=== PATIENT | male | born 1970 | race Asian ===

== ENCOUNTER 2017-06-21 11:03 | Emergency (ER) | payer BC ==
[~2017-06-21] VITALS: Ht 167.6 cm; Wt 68.9 kg
[2017-06-21 12:35] VITALS: BP 166/91
[2017-06-21] MEDS ORDERED: KETOROLAC TROMETH 60MG/2ML VIAL IM ONE (13:30)
== END 2017-06-21 14:27 | disposition home or self-care (01) ==
LOC: ER 11:03
DX: M25.552 Pain in left hip (principal); I10 Essential (primary) hypertension; M10.9 Gout, unspecified; Z88.8 Allergy status to other drugs, medicaments and biological substances; V43.62XA Car passenger injured in collision with other type car in traffic accident, initial encounter; Y93.89 Activity, other specified; Y92.89 Other specified places as the place of occurrence of the external cause; Y99.8 Other external cause status
CPT/HCPCS: 73502

== ENCOUNTER 2019-11-28 15:30 | Emergency (ER) | payer BC, OTHER ==
[~2019-11-28] VITALS: Ht 167.6 cm; Wt 81.6 kg
[2019-11-28] MEDS ORDERED: SODIUM CHLORIDE 0.9% 1,000 ML IV ONE ×2 (16:00)
[2019-11-28 16:19] LABS: Urine Bacteria MANY /hpf (None Seen); Urine Blood TRACE /uL (Negative); Urine Hyaline Cast FEW /lpf (0 - 2); Urine Specific Gravity 1.011 (1.001-1.035); Urine WBC 158 /hpf (0 - 3); Urine WBC Clumps PRESENT /hpf (None Seen)
[2019-11-28] MEDS ORDERED: cefTRIAXone W LIDOCAINE 1 GM IM IM ONE (17:30)
[2019-11-28] MEDS ORDERED: LIDOCAINE 2% (LOCAL ANESTH.) PF 5ml SDV ONE (18:04)
[2019-11-28] MEDS ORDERED: cefTRIAXone SOD 1,000 MG VL ONE (18:04)
[2019-11-28 18:14] VITALS: BP 126/78
== END 2019-11-28 18:16 | disposition home or self-care (01) ==
LOC: ER 15:30
DX: N50.811 Right testicular pain (principal); N39.0 Urinary tract infection, site not specified; N45.2 Orchitis; I10 Essential (primary) hypertension
CPT/HCPCS: 71045; 74176; 76870; 81001; 96372; 99285; J0696; J2001

== ENCOUNTER 2024-02-22 15:55 | Inpatient (IN) | payer OTHER ==
[~2024-02-22] VITALS: Ht 167.6 cm; Wt 75.0 kg
--- NOTE | 2024-02-22 17:01 | ED.PDOC ---
SOB-HPI HPI Comments HPI: Poor Historian. 53-year-old male presents to emergency department for evaluation of two week history of exertional shortness of breath better with rest. Patient denies any other associated symptoms. Patient states compliance with his medications and he took his morning medications. He was found to be hypertensive here in the ED. Past Medcial History: Hypertension and gout Past Surgical History: Denies any REVIEW OF SYSTEMS: CONSTITUTIONAL: Denies acute: fever, diaphoresis, chills, generalized weakness. HEAD: Denies acute: headache, photophobia Eyes: Denies acute: Double vision, vision loss, eye pain, eye discharge. EARS: Denies acute: tinnitus, hearing loss, ear discharge, ear pain, THROAT: Denies acute: sore throat, swelling, difficulty swallowing , pain with swallowing, change in voice. NECK: Denies acute: neck pain, neck swelling, stiff neck. HEART: Denies acute : chest pain, palpitations, LUNGS: Denies acute: wheezing, cough, hemoptysis ABDOMEN: Denies acute: abdominal pain, Nausea, Vomiting, diarrhea, melena , hematemesis, hematochezia SKIN: Denies acute: rash, redness, lesions, itchiness. EXTREMITIES: Denies acute: calf pain, numbness, tingling, weakness, denies pain in extremity. Denies acute: Low back pain. Neuro: Denies acute: focal neurological deficit, motor or sensory focal neurological deficit, tremors, seizure like activity, confusion, dizziness, change in mental status, loss of bowel or bladder function, cauda equina like symptoms. : Denies acute: dysuria, hematuria, flank pain, increase in urinary frequency. PSYCH: Denies acute: hallucination, suicidal ideation, homicidal ideation. PHYSICAL EXAM: General: no acute distress, awake and alert. Head: normocephalic, atraumatic. Neck: supple, trachea is midline, no swelling. Throat: Normal phonation. Eyes:, no erythema, no purulent discharge, no proptosis, no icterus. Heart: regular rate, regular rhythm, no significant murmur appreciated. Lungs: no apparent respiratory distress, Able to speak in full sentences. No wheezing, no rhonchi, no crackles. No stridors Clear to auscultation bilaterally. Abdomen: non tender to palpation, non distended, soft, no guarding, no rebound, + bowel sounds. Neuro: Awake, Alert, oriented to name, self, situation, follows commands GCS=15. Speech is normal. Skin: no petechia, no purpura, no cyanosis, non-pale, not jaundice. Lower extremities: --no - Pitting edema no deformity, no focal swelling, no calf TTP. Makes eye contact. moves all four extremities. Face: no apparent facial droop. Ambulating in the ED independently. ED course At this time 2:43 a.m., Dr. Scott called back and give me an authorization [id number] stating that they have no bed availability and they would like us to admit the patient here. Chief Complaint: Shortness of Breath Time Seen by MD: 15:56 Primary Care Provider: JEREMÍAS Easton notes: Nurses Notes, Medications, Allergies Information Source: Patient Mode of Arrival: Ambulatory Past Medical History PAST MEDICAL HISTORY: Gout, HTN Surgical History: Denies all surgeries Social History Smoker: Non-Smoker Alcohol: Denies ETOH Use Drugs: Denies Drug Use X-Ray, Labs, Meds, VS Vital Signs Date Time Temp Pulse Resp B/P (MAP) Pulse Ox O2 Delivery O2 Flow Rate FiO2 02/23/24 00:11 98.1 109 15 144/79 (100) 99 98.1 02/23/24 00:09 20 98 Room Air* 0 21 02/22/24 23:32 195/91 02/22/24 23:11 98.1 96 16 195/91 (125) 99 98.1 02/22/24 16:46 Room Air 0 02/22/24 16:41 98.1 105 17 188/102 (130) 100 Lab Test 02/23/24 00:14 02/22/24 22:44 02/22/24 22:15 02/22/24 21:24 Range/Units Troponin I High Sensitivity 15 14 14 </=54 ng/L Sodium Level 139 141 136-145 mmol/L Potassium Level 3.6 3.4 L 3.5-5.1 mmol/L Chloride Level 107 106 98-107 mmol/L Carbon Dioxide Level 16 L 17 L 20-31 mmol/L Anion Gap 16 H 18 H 5-15 Blood Urea Nitrogen 108 *H 105 *H 9-23 mg/dL Creatinine 10.87 *H 11.05 *H 0.700-1.30 mg/dL Glomerular Filtration Rate Calc 5 5 >90 mL/min BUN/Creatinine Ratio 9.9 L 9.5 L 10.0-20.0 Serum Glucose 102 98 74-106 mg/dL Calcium Level 8.0 L 8.1 L 8.7-10.4 mg/dL Total Bilirubin 0.4 0.4 0.2-1.0 mg/dL Aspartate Amino Transferase (AST) 9 L 10 L 13-40 U/L Alanine Aminotransferase (ALT) 24 19 7-40 U/L Alkaline Phosphatase 132 H 130 H 46-116 U/L Total Protein 8.3 H 8.4 H 5.7-8.2 g/dL Albumin 4.8 4.7 3.2-4.8 g/dL White Blood Count 9.7 4.4-10.8 10^3/uL Red Blood Count 2.92 L 4.5-5.90 10^6/uL Hemoglobin 8.6 L 13.5-17.5 g/dL Hematocrit 25.8 L 41.0-53.0 % Mean Corpuscular Volume 88.3 80.0-100.0 fL Mean Corpuscular Hemoglobin 29.5 28.0-32.0 pg Mean Corpuscular Hemoglobin Concent 33.5 32.0-36.0 g/dL Red Cell Distribution Width 16.4 H 11.8-14.3 % Platelet Count 185 140-450 10^3/uL Mean Platelet Volume 7.1 6.9-10.8 fL Neutrophils (%) (Auto) 67.1 37.0-80.0 % Lymphocytes (%) (Auto) 17.8 10.0-50.0 % Monocytes (%) (Auto) 6.0 0.0-12.0 % Eosinophils (%) (Auto) 8.3 H 0.0-7.0 % Basophils (%) (Auto) 0.8 0.0-2.0 % Neutrophils # (Auto) 6.5 1.6-8.6 10 ^3/uL Lymphocytes # (Auto) 1.7 0.4-5.4 10 ^3/uL Monocytes # (Auto) 0.6 0-1.3 10 ^3/uL Eosinophils # (Auto) 0.8 0-0.8 10 ^3/uL Basophils # (Auto) 0.1 0-0.2 10 ^3/uL Nucleated Red Blood Cells 0.1 % B-Type Natriuretic Peptide 8.90 0-100 pg/mL Test 02/22/24 17:04 Range/Units Blood Gas Specimen Type Arterial Blood Gas Sample Site Right radial Blood Gas Patient Temperature 37.0 Arterial Blood Date Drawn [id number] Arterial Blood pH 7.341 L 7.350-7.450 Arterial Blood Partial Pressure CO2 30.1 L 35.0-48.0 mmHg Arterial Blood Partial Pressure O2 99.7 83.0-108.0 mmHg Arterial Blood HCO3 15.9 L 21.0-28.0 mmol/L Arterial Blood Oxygen Saturation 97.2 94.0-98.0 % Arterial Blood Base Excess -8.8 L -2.0-3.0 mmol/L Arterial Blood Oxyhemoglobin 96.4 94.0-98.0 % Arterial Blood Carboxyhemoglobin 0.1 L 0.5-1.5 % Arterial Blood Methemoglobin 0.7 0.0-1.5 % [place] Test Yes Blood Gas Total Hemoglobin 8.80 L 13.5-17.5 g/dL Blood Gas Modality Room air FiO2 % 21.0 Current Medications Medications (Trade) Dose Ordered Sig/Gildardo Route Start Time Stop Time Status Last Admin Hydralazine HCl (Apresoline Injection) 5 mg ONCE ONCE IV 02/22/24 23:15 02/22/24 23:17 DC 02/22/24 23:32 [place] [id number] Ph: [phone] DIAGNOSTIC IMAGING Diagnostic Imaging Report : [id number] Signed PATIENT: LENY DANIELS ACCT: [id number] UNIT: [id number] : 1970 LOC: ER ROOM / BED: / AGE / SEX: 53 / M ADM STATUS: REG ER SERVICE 1649 ORDERING PHYSICIAN: KATHY LEÓN DO PROCEDURE(s): CXRP - CHEST PORTABLE REASON: sob ORDER NUMBER(s): [id number], ACCESSION NUMBER(s): [id number] CHEST RADIOGRAPH Indication: sob Technique: Single frontal view of the chest was obtained Comparison: CHEST PORTABLE on DOS: 11/28/19 FINDINGS: Lines and Tubes: None Lungs: No focal consolidation. Pleura: No effusion.No pneumothorax. Cardiomediastinal contours: Unremarkable Pulmonary vasculature: Within normal limits. Bones: No acute osseous abnormality. IMPRESSION: 1. No acute cardiopulmonary disease. HS:Y ATED BY: ONOFRE SINGH MD DICTATED DATE/TIME: 02/22/241702 SIGNED BY: ONOFRE SINGH MD SIGNED DATE/TIME: 02/22/241702 CC: Time of 1ST Reevaluation: 21:59 (There has been a major delay of care because the labs could not find the patient multiple times so they canceled all the lab orders. I reordered the labs and they still had difficulty finding the patient. Patient has said that he was waiting in his car.) Reevaluation 1ST: Unchanged Time of 2ND Reevaluation: 00:35 (The case was discussed with the [facility] admitting team (HPI, physical exam, labs and diagnostic tests that were available at the time of disposition, ED course, treatment plan) on the phone. Dr. Scott had to leave immediately for something critical on the phone. She said she will call back. We have not heard from [facility] had any communication with them since then. I do not have an authorization number. She had to hang up prior to give me an authorization number.) Time of 3RD Reevaluation: 02:38 (As of this minute I still have not heard back from [facility] to give me an authorization number. We tried calling them multiple times and they put us on hold. I spoke with the coordinator and shared with the my frustration and inappropriate length of communication that compromise his patient care. I demanded that I admit the patient here in our facility since they are too busy to take care of the own patient.) Patient Education/Counseling: Diagnosis, Treatment Family Education/Counseling: Other Departure 1 Departure Time of Disposition: 21:59 Impression: Primary Impression: Dyspnea Additional Impressions: Hypertensive crisis Acute renal failure Disposition: ADMITTED INPATIENT Admit to: Tele Condition: Guarded Discharged With: Self Critical Care Note Critical Care Time?: Yes (55 min-critical care time only) I personally scribed for KATHY LEÓN DO ([email or web address]) on 02/22/24 at 17:01. Electronically submitted by Libia Blanchard ([email or web address]). I personally scribed for KATHY LEÓN DO ([email or web address]) on 02/22/24 at 21:18. Electronically submitted by Dwain Quesada ([email or web address]). I personally scribed for KATHY LEÓN DO ([email or web address]) on 02/23/24 at 01:35. Electronically submitted by Dwain Quesada ([email or web address]). KATHY LEÓN DO Feb 22, 2024 17:01
[2024-02-22 17:09] LABS: Base Excess -8.8 mmol/L (-2.0-3.0)
[2024-02-22 22:02] LABS: Basophils # (auto) 0.1 10 ^3/uL (0-0.2); Basophils % (auto) 0.8 % (0.0-2.0); Eosinophils # (auto) 0.8 10 ^3/uL (0-0.8); Eosinophils % (auto) 8.3 % (0.0-7.0); Hematocrit 25.8 % (41.0-53.0); Hemoglobin 8.6 g/dL (13.5-17.5); Lymphocytes # (auto) 1.7 10 ^3/uL (0.4-5.4); Lymphocytes % (auto) 17.8 % (10.0-50.0); Mean Corpuscular Hemoglobin 29.5 pg (28.0-32.0); Mean Corpuscular Hgb Conc. 33.5 g/dL (32.0-36.0); Mean Corpuscular Volume 88.3 fL (80.0-100.0); Monocytes # (auto) 0.6 10 ^3/uL (0-1.3); Neutrophils # (auto) 6.5 10 ^3/uL (1.6-8.6); Neutrophils % (auto) 67.1 % (37.0-80.0); Nucleated Red Blood Cells % 0.1 %; Platelet Count (auto) 185 10^3/uL (140-450); Red Blood Cells 2.92 10^6/uL (4.5-5.90); Red Cell Distribution Width 16.4 % (11.8-14.3); White Blood Cell 9.7 10^3/uL (4.4-10.8)
[2024-02-22 22:12] LABS: Alanine Aminotransferase 19 U/L (7-40); Albumin 4.7 g/dL (3.2-4.8); Anion Gap 18 (5-15); BUN/Creatinine Ratio 9.5 (10.0-20.0); Chloride 106 mmol/L (98-107); Glucose 98 mg/dL (74-106); Sodium 141 mmol/L (136-145)
[2024-02-22 22:13] LABS: Bilirubin, Total 0.4 mg/dL (0.2-1.0)
[2024-02-22 22:19] LABS: Carbon Dioxide 17 mmol/L (20-31); Potassium 3.4 mmol/L (3.5-5.1)
[2024-02-22 22:20] LABS: Alkaline Phosphatase 130 U/L (46-116); Aspartate Aminotransferase 10 U/L (13-40); Calcium 8.1 mg/dL (8.7-10.4); Total Protein 8.4 g/dL (5.7-8.2)
[2024-02-22 22:23] LABS: Blood Urea Nitrogen 105 mg/dL (9-23)
[2024-02-22 23:17] LABS: Alanine Aminotransferase 24 U/L (7-40); Anion Gap 16 (5-15); BUN/Creatinine Ratio 9.9 (10.0-20.0); Bilirubin, Total 0.4 mg/dL (0.2-1.0); Glucose 102 mg/dL (74-106); Potassium 3.6 mmol/L (3.5-5.1); Sodium 139 mmol/L (136-145)
[2024-02-22 23:25] LABS: Alkaline Phosphatase 132 U/L (46-116); Aspartate Aminotransferase 9 U/L (13-40); Carbon Dioxide 16 mmol/L (20-31); Chloride 107 mmol/L (98-107)
[2024-02-22 23:26] LABS: Albumin 4.8 g/dL (3.2-4.8); Total Protein 8.3 g/dL (5.7-8.2)
[2024-02-22 23:27] LABS: Blood Urea Nitrogen 108 mg/dL (9-23)
[2024-02-22] MEDS: hydrALAZINE HCL 20 MG/ML VL IV ONE (23:32)
[2024-02-23 00:09] VITALS: RESP 20; O2SAT 98
[2024-02-23] MEDS: SODIUM CHLORIDE 0.9% 1,000 ML IV ONE (03:23)
[2024-02-23] MEDS: SODIUM BICARB 8.4% 50Meq/50ml SYR Vial IV ONE (03:24)
[2024-02-23] MEDS ORDERED: NITROGLYCERIN 0.4 MG SL TAB SL PRN (06:45)
[2024-02-23] MEDS ORDERED: ACETAMINOPHEN 325 MG TAB PO PRN (06:45)
[2024-02-23] MEDS ORDERED: MORPHINE SULFATE INJ 2 MG/ml SYRG IV PRN (06:45)
--- NOTE | 2024-02-23 06:49 | DVHHP2 ---
History of Present Illness Reason for Visit: High blood pressure and shortness of breath History of Present Illness Abilio Harrington is a 53-year-old male with past medical history of hypertension and gout who presents to the ED for elevated blood pressure and shortness of breath x2 weeks. Patient reports that with minimal exertion he gets extremely fatigued and short of breath. Patient states that he went to the [place] urgent care yesterday and was advised that his blood pressure was high systolics of 170s and advised to come to the ED at [facility] for evaluation. Patient reports that several months ago he had some nasal bleeding with clots and also that he has been bruising easily throughout his body. Patient reports that he is compliant with his medications taking amlodipine, colchicine, and allopurinol. Patient reports that he quit smoking, drinks alcohol occasionally, and denies illicit drug use. Patient denies chest pain, abdominal pain, nausea, vomiting, diarrhea, weakness, lightheadedness, and dizziness. Cardiovascular: HTN Rheumatologic: Gout Past Surgical History: Other (EGD and colonoscopy) Family History: Hypertension, Other (Mom and dad with hypertension and leukemia, father colon cancer) Smoke: Quit ALCOHOL: occassional Drugs: None Lives: with Family Domestic Violence: Neg Review of Systems Constitutional: Yes: Other (Fatigue); No: Fever, Chills, Sweats, Weakness, Malaise Eyes: No: Pain, Vision change, Conjunctivae inflammation, Eyelid inflammation, Other, Redness ENT: No: Ear pain, Ear discharge, Nose pain, Nose discharge, Nose congestion, Mouth pain, Mouth swelling, Throat pain, Throat swelling, Other Respiratory: Shortness of breath; No: Cough, Dry, SOB with excertion, Wheezing, Hemoptysis, Pleuritic Pain, Sputum, Wheezing, Other Cardiovascular: No: Chest Pain, Palpitations, Orthopnea, Paroxysmal Noc. Dyspnea, Edema, Lt Headedness, Other Gastrointestinal: No: Nausea, Vomiting, Abdominal Pain, Diarrhea, Constipation, Melena, Hematochezia, Other Genitourinary: No Dysuria, No Frequency, No Incontinence, No Hematuria, No Retention, No Other Musculoskeletal: No: other, neck pain, shoulder pain, arm pain, back pain, hand pain, leg pain, foot pain Skin: Bruising; No: Rash, Lesions, Jaundice, Other Neurological: No: Weakness, Numbness, Incoordination, Change in speech, Confusion, Seizures, Other Allergies: Coded Allergies: NO KNOWN ALLERGIES (Unverified , 02/23/24) Exam Vital Signs Vital Signs Date Time Temp Pulse Resp B/P (MAP) Pulse Ox O2 Delivery O2 Flow Rate FiO2 02/23/24 06:43 105 18 166/86 (112) 100 02/23/24 03:30 98.2 98.2 02/23/24 00:09 Room Air* 0 21 General Appearance: Alert, Oriented X3, Cooperative, No acute distress HEENT: Atraumatic, PERRLA, EOMI, Mucous membr. moist/pink Respiratory: Clear to auscultation, Normal air movement Cardiovascular: Normal S1, Normal S2 Abdominal: Normal bowel sounds, Soft, No tenderness, No hepatospenomegaly, No masses Extremities: No clubbing, No cyanosis, No edema, Normal pulses, No tenderness/swelling Skin: No significant lesion Neuro: Normal gait, Normal speech, Strength at 5/5 X4 ext, Normal tone, Sensation intact Psych/Mental Status: Mental status NL, Mood NL Labs/Xrays Labs Test 02/23/24 00:14 02/22/24 22:44 02/22/24 21:24 02/22/24 17:04 Range/Units Troponin I High Sensitivity 15 </=54 ng/L Sodium Level 139 136-145 mmol/L Potassium Level 3.6 3.5-5.1 mmol/L Chloride Level 107 98-107 mmol/L Carbon Dioxide Level 16 L 20-31 mmol/L Anion Gap 16 H 5-15 Blood Urea Nitrogen 108 *H 9-23 mg/dL Creatinine 10.87 *H 0.700-1.30 mg/dL Glomerular Filtration Rate Calc 5 >90 mL/min BUN/Creatinine Ratio 9.9 L 10.0-20.0 Serum Glucose 102 74-106 mg/dL Calcium Level 8.0 L 8.7-10.4 mg/dL Total Bilirubin 0.4 0.2-1.0 mg/dL Aspartate Amino Transferase (AST) 9 L 13-40 U/L Alanine Aminotransferase (ALT) 24 7-40 U/L Alkaline Phosphatase 132 H 46-116 U/L Total Protein 8.3 H 5.7-8.2 g/dL Albumin 4.8 3.2-4.8 g/dL White Blood Count 9.7 4.4-10.8 10^3/uL Red Blood Count 2.92 L 4.5-5.90 10^6/uL Hemoglobin 8.6 L 13.5-17.5 g/dL Hematocrit 25.8 L 41.0-53.0 % Mean Corpuscular Volume 88.3 80.0-100.0 fL Mean Corpuscular Hemoglobin 29.5 28.0-32.0 pg Mean Corpuscular Hemoglobin Concent 33.5 32.0-36.0 g/dL Red Cell Distribution Width 16.4 H 11.8-14.3 % Platelet Count 185 140-450 10^3/uL Mean Platelet Volume 7.1 6.9-10.8 fL Neutrophils (%) (Auto) 67.1 37.0-80.0 % Lymphocytes (%) (Auto) 17.8 10.0-50.0 % Monocytes (%) (Auto) 6.0 0.0-12.0 % Eosinophils (%) (Auto) 8.3 H 0.0-7.0 % Basophils (%) (Auto) 0.8 0.0-2.0 % Neutrophils # (Auto) 6.5 1.6-8.6 10 ^3/uL Lymphocytes # (Auto) 1.7 0.4-5.4 10 ^3/uL Monocytes # (Auto) 0.6 0-1.3 10 ^3/uL Eosinophils # (Auto) 0.8 0-0.8 10 ^3/uL Basophils # (Auto) 0.1 0-0.2 10 ^3/uL Nucleated Red Blood Cells 0.1 % B-Type Natriuretic Peptide 8.90 0-100 pg/mL Blood Gas Specimen Type Arterial Blood Gas Sample Site Right radial Blood Gas Patient Temperature 37.0 Arterial Blood Date Drawn [id number] Arterial Blood pH 7.341 L 7.350-7.450 Arterial Blood Partial Pressure CO2 30.1 L 35.0-48.0 mmHg Arterial Blood Partial Pressure O2 99.7 83.0-108.0 mmHg Arterial Blood HCO3 15.9 L 21.0-28.0 mmol/L Arterial Blood Oxygen Saturation 97.2 94.0-98.0 % Arterial Blood Base Excess -8.8 L -2.0-3.0 mmol/L Arterial Blood Oxyhemoglobin 96.4 94.0-98.0 % Arterial Blood Carboxyhemoglobin 0.1 L 0.5-1.5 % Arterial Blood Methemoglobin 0.7 0.0-1.5 % [place] Test Yes Blood Gas Total Hemoglobin 8.80 L 13.5-17.5 g/dL Blood Gas Modality Room air FiO2 % 21.0 CHEST RADIOGRAPH Indication: sob Technique: Single frontal view of the chest was obtained Comparison: CHEST PORTABLE on DOS: 11/28/19 FINDINGS: Lines and Tubes: None Lungs: No focal consolidation. Pleura: No effusion.No pneumothorax. Cardiomediastinal contours: Unremarkable Pulmonary vasculature: Within normal limits. Bones: No acute osseous abnormality. IMPRESSION: 1. No acute cardiopulmonary disease. Assessment/Plan Assessment/Plan Assessment/Plan: Anemia MILENA Hypertensive crisis NS given in ER Sodium bicarb given ER Antihypertensive Troponin negative x3 BNP ABG EKG Chest x-ray noted UA D-dimer Nephro consult Transfuse PRBCs for hemoglobin less than 7.0 Labs A.m. labs Iron panel Direct Mandi Haptoglobin Stool occult blood reticulocyte count Chronic gout Follow up with PCP outpatient Continue home medications ETOH use Counseled patient on ETOH cessation FEN/PPX Diet IVf DVT ppx not indicated patient ambulating PUD ppx not indicated no history of GERD or GI bleed Discussed plan of care with patient and nurse Admit to tele Home medications reconciled Plan discussed with: Patient, Spouse Date of Service: Feb 23, 2024 Billing Provider: DECLAN JOHN Common Visit Codes: [id number] INP/OBS CARE (HIGH) DCELAN JOHN Feb 23, 2024 06:49
[2024-02-23] MEDS: SODIUM CHLORIDE 0.9% 1,000 ML IV SCH (07:30)
[2024-02-23 09:25] LABS: Urine Bacteria MANY /hpf (None Seen); Urine Blood TRACE /uL (Negative); Urine Budding Yeast OCCASIONAL /hpf (None Seen); Urine Clarity Clear (Clear); Urine Color Colorless (Yellow); Urine Protein, UAD 2+ (Negative); Urine Specific Gravity 1.006 (1.001-1.035); Urine Squamous Epithelial Cell None Seen /hpf (<5); Urine Urobilinogen Normal (Negative); Urine WBC 20 /hpf (0 - 3)
[2024-02-23] MEDS: COLCHICINE 0.6 MG CAP PO SCH (10:31)
[2024-02-23] MEDS: amLODIPine BESYLATE 5 MG TAB PO SCH (10:31)
--- NOTE | 2024-02-23 15:02 | DVHPN2 ---
Progress Note Date Seen: Feb 23, 2024 Medical Necessity Reason Pt with a Central, PICC or Fol: No Subjective Patient reports: No new complaints Review of Systems: HEENT:Normal, CVS:Normal, RESPIRATORY:Normal, GI:Normal, :Normal, MSK:Normal, NEURO:Normal Objective vital signs Vital Sign Date Time Temp Pulse Resp B/P (MAP) Pulse Ox O2 Delivery O2 Flow Rate FiO2 02/23/24 12:00 98.2 91 16 165/88 (113) 100 98.2 02/23/24 00:09 Room Air* 0 21 medications Current Medications Medications Dose Ordered Sig/Gildardo Route Start Time Stop Time Status Last Admin Dose Admin Hydralazine HCl 10 mg Q6HP PRN IV 02/23/24 06:45 Acetaminophen/ Hydrocodone Bitart 1 tab Q4HP PRN PO 02/23/24 06:45 Ondansetron HCl 4 mg Q4HP PRN IV 02/23/24 06:45 Acetaminophen 650 mg Q6HP PRN PO 02/23/24 06:45 Nitroglycerin 0.4 mg Q5MINP PRN SL 02/23/24 06:45 Morphine Sulfate 2 mg Q30M PRN IV 02/23/24 06:45 Sodium Chloride 1,000 ml @ 75 mls/hr [id number] IV 02/23/24 07:30 Amlodipine Besylate 10 mg DAILY PO 02/24/24 10:00 UNV Ceftriaxone Sodium 50 ml @ 100 mls/hr DAILY@09 IV 02/24/24 09:00 UNV Examination: GENERAL:Normal, HEENT:Normal, NECK:Normal, LUNGS:Normal, CVS:Normal, ABDOMEN:Normal, MSK:Normal, MSK:Abnormal (bruises, edema ++), SKIN:Normal, NEURO:Normal, :Normal laboratory and microbiology Laboratory Tests 02/22/24 22:44 02/22/24 21:24 Test 02/22/24 22:44 Range/Units Serum Glucose 102 74-106 mg/dL Problem List/Assessment/Plan Problem List/Assessment/Plan #1 hypertensive urgency: adjust meds #2 ? acute on chronic renal failure/vmn: check usg, nephro eval #3 anemia #4 gout: check uric acid #5 acute systolic/diastolic heart failure: echo #6 uti: culture, rocephin unstable for transfer advance care planning- full code- time spent 19 mins Plan discussed with: Patient My Orders My Orders Orders - ANU SHERIFF MD Procedure Category Date Status Time Kidney US 02/23/24 Logged 14:52 Amlodipine Tablet PHA 02/24/24 Logged (Norvasc Tablet) 10:00 Urine Bacterial ADIA 02/23/24 Transmitted Culture 14:53 Ceftriaxone 1gm/50ml PHA 02/24/24 Logged D5w (Rocephin) 09:00 Ceftriaxone 1gm/50ml PHA 02/23/24 Logged D5w (Rocephin) 15:00 Echo 2d Mode Cardiac US 02/23/24 Logged DOP 14:53 Complete Blood Count LAB 02/24/24 Verified 06:00 Comprehensive LAB 02/24/24 Verified Metabolic Panel 06:00 Uric Acid LAB 02/24/24 Verified 06:00 Hydralazine Hcl PHA 02/23/24 Transmitted Tablet (Apresoline 22:00 Date of Service: Feb 23, 2024 Billing Provider: ANU SHERIFF MD Common Visit Codes: [id number] INP/OBS CARE(HIGH) Secondary Visit Codes: [id number]-[id number] CARE PLAN 30 MINUTES ANU SHERIFF MD Feb 23, 2024 15:02
--- NOTE | 2024-02-23 15:53 | DVH ---
INDICATION: renal failure TECHNIQUE: Multiple real-time sonographic images of the kidneys and bladder were obtained. COMPARISON: None FINDINGS: The right kidney measures 8.1 cm in length, which is normal in size. There is increased echogenicity of the right kidney. No hydronephrosis. The left kidney measures 7.3 cm in length, which is normal in size. Anechoic lesion midpole left kidn ey most likely a small cyst measures 6 x 6 x 5 mm There is increased echogenicity of the left kidney. No hydronephrosis. No large intraluminal masses are seen in the bladder. Prior to voiding the bladder volume measures volume 1162 cc. Prostate measures 3.6 x 2.3 by 3.4 cm. ( volume = 14.5 cc) IMPRESSION: 1. Atrophic kidneys bilaterally. Right kidney measures 8.1 cm. Left kidney measures 7.3 cm. 2. Small cortical cyst midpole left kidney measuring 6 x 6 x 5 mm 3. Prevoid bladder volume 1162 mL 4. Increased echogenicity to the renal cortex bilaterally
[2024-02-23] MEDS: hydrALAZINE HCL 20 MG/ML VL IV PRN (16:27)
[2024-02-23] MEDS: METOPROLOL TARTRATE 25 MG TAB PO ONE (16:28)
[2024-02-23] MEDS: cefTRIAXone 1GM/50ML D5W 50 ML IV ONE (16:28)
[2024-02-23 16:49] VITALS: BP 180/86; PULSE 98; RESP 18; TEMP 98.1; O2SAT 100
[2024-02-23] MEDS ORDERED: ALLO100T PO (16:52)
[2024-02-23] MEDS ORDERED: AMLO1TAB22 PO (16:52)
[2024-02-23] MEDS ORDERED: COLCPOW2 PO (16:52)
--- NOTE | 2024-02-23 18:04 | DVHINCON2 ---
Date of service: Feb 23, 2024 Reason for Consultation MILENA History of Present Illness 53 years old male with medical history of hypertension presented with the chief complaints of shortness of breath, fatigue, bruising for the past two weeks patient found to have high blood pressure when he went to urgent Care and he was asked to come to hospital he takes only amlodipine 5 mg for blood pressure, is also next to him patient seen and examined in the ER lobby area denies urinary symptoms Past Medical History As per HPI Past Surgical History As per Allergies: Coded Allergies: NO KNOWN ALLERGIES (Unverified , 02/23/24) Home Meds Reported Medications Allopurinol (Allopurinol) 100 Mg Tab, 100 MG PO DAILY for 30 Days, MG 02/23/24 Colchicine (Colchicine) Pow, 0.5 MG PO Q12HR for 30 Days, MG 02/23/24 Amlodipine Besylate (Amlodipine Besylate) 5 Mg Tab, 5 MG PO DAILY for 30 Days, MG 02/23/24 Current Medications Current Medications Medications (Trade) Dose Ordered Sig/Gildardo Route PRN Reason Start Time Stop Time Status Last Admin Hydralazine HCl (Apresoline Injection) 10 mg Q6HP PRN IV SBP>150 02/23/24 06:45 02/23/24 16:27 Acetaminophen/ Hydrocodone Bitart (Purlear 5/325MG Tab) 1 tab Q4HP PRN PO MODERATE PAIN (4-6 PAIN SCALE) 02/23/24 06:45 Ondansetron HCl (Zofran) 4 mg Q4HP PRN IV NAUSEA / VOMITING 02/23/24 06:45 Acetaminophen (Tylenol Tablet) 650 mg Q6HP PRN PO PAIN SCALE 1-3 OR TEMP>100.4 02/23/24 06:45 Nitroglycerin (Ntrostat Sublingual) 0.4 mg Q5MINP PRN SL FOR CHEST PAIN 02/23/24 06:45 Morphine Sulfate 2 mg Q30M PRN IV FOR CHEST PAIN 02/23/24 06:45 Amlodipine Besylate (Norvasc Tablet) 5 mg DAILY PO 02/23/24 10:00 02/23/24 14:59 DC 02/23/24 10:31 Colchicine (Colcrys) 0.6 mg DAILY PO 02/23/24 10:00 02/23/24 14:59 DC 02/23/24 10:31 Sodium Chloride 1,000 ml @ 75 mls/hr [id number] IV 02/23/24 07:30 02/23/24 16:28 Amlodipine Besylate (Norvasc Tablet) 10 mg DAILY PO 02/24/24 10:00 Ceftriaxone Sodium 50 ml @ 100 mls/hr DAILY@09 IV 02/24/24 09:00 Hydralazine HCl (Apresoline Tablet) 50 mg Q12HR PO 02/23/24 22:00 02/23/24 15:04 DC Metoprolol Tartrate (Lopressor Tablet) 25 mg BID PO 02/23/24 22:00 Family History: FH: colon cancer G8 FATHER FH: leukemia G8 MOTHER G8 FATHER Hypertension G8 MOTHER G8 FATHER Social History Denies any Review of Systems As documented in HPI otherwise negative H&P Exam Vital Signs/I&O Vital Sign Date Time Temp Pulse Resp B/P (MAP) Pulse Ox O2 Delivery O2 Flow Rate FiO2 02/23/24 16:49 98.1 98 18 180/86 (117) 100 98.1 02/23/24 16:49 Room Air* 0 21 Physical Exam General-not in any distress HEENT-normocephalic, no icterus, no pallor, neck supple Respiratory-fair air entry bilateral, no rhonchi, no wheeze [id number] heard, no murmurs appreciated Abdominal-soft, nontender, nondistended Musculoskeletal- positive bruising Genitourinary-deferred Neuro-awake alert oriented x3, Psychiatric-not agitated, cooperative, Labs/Diagnostic Data Labs/Diagnostic Data Laboratory Tests Test 02/23/24 08:00 02/23/24 07:06 02/23/24 00:14 02/22/24 22:44 Range/Units Urine Color Colorless Yellow Urine Clarity Clear Clear Urine pH 6.0 5.0-9.0 Urine Specific [place] 1.006 1.001-1.035 Urine Protein 2+ H Negative Urine Ketones Negative Negative Urine Blood Trace H Negative /uL Urine Nitrite Negative Negative Urine Bilirubin Negative Negative Urine Urobilinogen Normal Negative mg/dL Urine Leukocyte Esterase 2+ Negative /uL Urine RBC 1 0 - 3 /hpf Urine WBC 20 0 - 3 /hpf Urine Squamous Epithelial Cells None seen <5 /hpf Urine Bacteria Many H None Seen /hpf Urine Yeast (Budding) Occasional None Seen /hpf Urine Glucose Normal Normal mg/dL Stool Occult Blood Negative Negative Stool Occult Blood Sample #3 Negative Reticulocyte Count (auto) 3.26 H 0.5-1.5 % Iron Level 54 L 65-175 ug/dL Total Iron Binding Capacity 284 250-425 ug/dL Percent Iron Saturation 19.0 L 20-55 % Troponin I High Sensitivity 15 </=54 ng/L Sodium Level 139 136-145 mmol/L Potassium Level 3.6 3.5-5.1 mmol/L Chloride Level 107 98-107 mmol/L Carbon Dioxide Level 16 L 20-31 mmol/L Anion Gap 16 H 5-15 Blood Urea Nitrogen 108 *H 9-23 mg/dL Creatinine 10.87 *H 0.700-1.30 mg/dL Glomerular Filtration Rate Calc 5 >90 mL/min BUN/Creatinine Ratio 9.9 L 10.0-20.0 Serum Glucose 102 74-106 mg/dL Calcium Level 8.0 L 8.7-10.4 mg/dL Total Bilirubin 0.4 0.2-1.0 mg/dL Aspartate Amino Transferase (AST) 9 L 13-40 U/L Alanine Aminotransferase (ALT) 24 7-40 U/L Alkaline Phosphatase 132 H 46-116 U/L Total Protein 8.3 H 5.7-8.2 g/dL Albumin 4.8 3.2-4.8 g/dL Test 02/22/24 22:15 02/22/24 21:24 02/22/24 17:04 Range/Units Troponin I High Sensitivity 14 14 </=54 ng/L White Blood Count 9.7 4.4-10.8 10^3/uL Red Blood Count 2.92 L 4.5-5.90 10^6/uL Hemoglobin 8.6 L 13.5-17.5 g/dL Hematocrit 25.8 L 41.0-53.0 % Mean Corpuscular Volume 88.3 80.0-100.0 fL Mean Corpuscular Hemoglobin 29.5 28.0-32.0 pg Mean Corpuscular Hemoglobin Concent 33.5 32.0-36.0 g/dL Red Cell Distribution Width 16.4 H 11.8-14.3 % Platelet Count 185 140-450 10^3/uL Mean Platelet Volume 7.1 6.9-10.8 fL Neutrophils (%) (Auto) 67.1 37.0-80.0 % Lymphocytes (%) (Auto) 17.8 10.0-50.0 % Monocytes (%) (Auto) 6.0 0.0-12.0 % Eosinophils (%) (Auto) 8.3 H 0.0-7.0 % Basophils (%) (Auto) 0.8 0.0-2.0 % Neutrophils # (Auto) 6.5 1.6-8.6 10 ^3/uL Lymphocytes # (Auto) 1.7 0.4-5.4 10 ^3/uL Monocytes # (Auto) 0.6 0-1.3 10 ^3/uL Eosinophils # (Auto) 0.8 0-0.8 10 ^3/uL Basophils # (Auto) 0.1 0-0.2 10 ^3/uL Nucleated Red Blood Cells 0.1 % Sodium Level 141 136-145 mmol/L Potassium Level 3.4 L 3.5-5.1 mmol/L Chloride Level 106 98-107 mmol/L Carbon Dioxide Level 17 L 20-31 mmol/L Anion Gap 18 H 5-15 Blood Urea Nitrogen 105 *H 9-23 mg/dL Creatinine 11.05 *H 0.700-1.30 mg/dL Glomerular Filtration Rate Calc 5 >90 mL/min BUN/Creatinine Ratio 9.5 L 10.0-20.0 Serum Glucose 98 74-106 mg/dL Calcium Level 8.1 L 8.7-10.4 mg/dL Total Bilirubin 0.4 0.2-1.0 mg/dL Aspartate Amino Transferase (AST) 10 L 13-40 U/L Alanine Aminotransferase (ALT) 19 7-40 U/L Alkaline Phosphatase 130 H 46-116 U/L B-Type Natriuretic Peptide 8.90 0-100 pg/mL Total Protein 8.4 H 5.7-8.2 g/dL Albumin 4.7 3.2-4.8 g/dL Blood Gas Specimen Type Arterial Blood Gas Sample Site Right radial Blood Gas Patient Temperature 37.0 Arterial Blood Date Drawn [id number] Arterial Blood pH 7.341 L 7.350-7.450 Arterial Blood Partial Pressure CO2 30.1 L 35.0-48.0 mmHg Arterial Blood Partial Pressure O2 99.7 83.0-108.0 mmHg Arterial Blood HCO3 15.9 L 21.0-28.0 mmol/L Arterial Blood Oxygen Saturation 97.2 94.0-98.0 % Arterial Blood Base Excess -8.8 L -2.0-3.0 mmol/L Arterial Blood Oxyhemoglobin 96.4 94.0-98.0 % Arterial Blood Carboxyhemoglobin 0.1 L 0.5-1.5 % Arterial Blood Methemoglobin 0.7 0.0-1.5 % [place] Test Yes Blood Gas Total Hemoglobin 8.80 L 13.5-17.5 g/dL Blood Gas Modality Room air FiO2 % 21.0 Assessment Acute kidney injury versus ESRD Underlying Chronic kidney disease unknown exact baseline Hypertensive emergency Anemia 2+ proteinuria UTI Recommendations Recommend renal replacement therapy for solute clearance Check JOSELITO panel C3-C4 anti-GBM HIV hepatitis panel Blood pressure control DC IV fluids Check U PCR Plan discussed with: Patient, Spouse NONA SEN MD Feb 23, 2024 18:04
[2024-02-23 18:16] VITALS: PULSE 83
[2024-02-23 19:22] LABS: Protein, Urine 178.4 mg/dL (1-14)
[2024-02-23 19:25] LABS: Creatinine, Urine 33.6 mg/dL (30.0-125.0)
[2024-02-23 20:06] VITALS: PULSE 85; PULSE 86; RESP 18; O2SAT 98
[2024-02-23 21:00] VITALS: BP 157/79; PULSE 83; RESP 18; TEMP 98.1; O2SAT 99
[2024-02-23] MEDS ORDERED: hydrALAZINE HCL 25 MG TAB PO SCH (22:00)
[2024-02-23 23:11] VITALS: BP 164/85; PULSE 88; RESP 19; TEMP 97.9; O2SAT 98
[2024-02-23] MEDS: METOPROLOL TARTRATE 25 MG TAB PO SCH (23:41)
[2024-02-24] VITALS (9 sets, daily range): BP systolic 145–157; BP diastolic 78–83; PULSE 71–104; RESP 17–20; TEMP 97.8–98.4; O2SAT 96–99
[2024-02-24 07:16] LABS: Basophils # (auto) 0.1 10 ^3/uL (0-0.2); Eosinophils # (auto) 0.6 10 ^3/uL (0-0.8); Hemoglobin 7.4 g/dL (13.5-17.5); Lymphocytes # (auto) 1.2 10 ^3/uL (0.4-5.4); Mean Corpuscular Hemoglobin 29.9 pg (28.0-32.0); Monocytes # (auto) 0.4 10 ^3/uL (0-1.3); Neutrophils # (auto) 4.3 10 ^3/uL (1.6-8.6); Nucleated Red Blood Cells % 0.1 %; Red Cell Distribution Width 16.2 % (11.8-14.3); White Blood Cell 6.5 10^3/uL (4.4-10.8)
[2024-02-24 07:19] LABS: Basophils % (auto) 0.8 % (0.0-2.0); Eosinophils % (auto) 8.6 % (0.0-7.0); Hematocrit 21.6 % (41.0-53.0); Lymphocytes % (auto) 18.5 % (10.0-50.0); Mean Corpuscular Hgb Conc. 34.4 g/dL (32.0-36.0); Mean Corpuscular Volume 86.9 fL (80.0-100.0); Monocytes % (auto) 5.5 % (0.0-12.0); Neutrophils % (auto) 66.6 % (37.0-80.0); Platelet Count (auto) 148 10^3/uL (140-450); Red Blood Cells 2.49 10^6/uL (4.5-5.90)
[2024-02-24 07:21] LABS: INR 1.02 (0.9-1.15); Partial Thromboplastin Time 30.1 SEC (24.5-34.5); Prothrombin Time 10.8 sec (9.3-11.8)
[2024-02-24 07:29] LABS: Alanine Aminotransferase 16 U/L (7-40); Alkaline Phosphatase 112 U/L (46-116); Anion Gap 15 (5-15); Bilirubin, Total 0.4 mg/dL (0.2-1.0); Chloride 102 mmol/L (98-107); Glucose 93 mg/dL (74-106); Magnesium 1.9 mg/dL (1.6-2.6); Uric Acid 9.2 mg/dL (3.7-9.2)
[2024-02-24 07:30] LABS: Total Protein 6.8 g/dL (5.7-8.2)
[2024-02-24 07:53] LABS: Aspartate Aminotransferase 8 U/L (13-40); Calcium 7.5 mg/dL (8.7-10.4); Carbon Dioxide 19 mmol/L (20-31); Phosphorus 8.7 mg/dL (2.4-5.1); Potassium 3.2 mmol/L (3.5-5.1); Sodium 136 mmol/L (136-145)
[2024-02-24 07:54] LABS: Blood Urea Nitrogen 102 mg/dL (9-23)
[2024-02-24] MEDS: amLODIPine BESYLATE 5 MG TAB PO SCH (08:58)
[2024-02-24] MEDS: cefTRIAXone 1GM/50ML D5W 50 ML IV SCH (08:58)
[2024-02-24 10:42] LABS: Hepatitis B Surface Antigen Negative (Negative)
[2024-02-24 11:59] LABS: Hepatitis A Ab IgM Negative; Hepatitis B Core IgM Negative (Negative); Hepatitis C Antibody Negative (Negative)
--- NOTE | 2024-02-24 12:10 | DVHPN2 ---
Progress Note Date Seen: Feb 24, 2024 Medical Necessity Reason Pt with a Central, PICC or Fol: No Subjective Patient reports: No new complaints, Feels better Review of Systems: HEENT:Normal, CVS:Normal, RESPIRATORY:Normal, GI:Normal, :Normal, MSK:Normal, NEURO:Normal Objective vital signs Vital Sign Date Time Temp Pulse Resp B/P (MAP) Pulse Ox O2 Delivery O2 Flow Rate FiO2 02/24/24 09:58 77 155/87 02/24/24 08:36 97.9 18 96 97.9 02/24/24 07:51 Room Air* 0 21 Total Intake and Output 02/23/24 02/23/24 02/24/24 15:00 23:00 07:00 Intake Total 300 ml Output Total 30 ml Balance -30 ml 300 ml medications Current Medications Medications Dose Ordered Sig/Gildardo Route Start Time Stop Time Status Last Admin Dose Admin Hydralazine HCl 10 mg Q6HP PRN IV 02/23/24 06:45 02/23/24 16:27 10 MG Acetaminophen/ Hydrocodone Bitart 1 tab Q4HP PRN PO 02/23/24 06:45 Ondansetron HCl 4 mg Q4HP PRN IV 02/23/24 06:45 Acetaminophen 650 mg Q6HP PRN PO 02/23/24 06:45 Nitroglycerin 0.4 mg Q5MINP PRN SL 02/23/24 06:45 Morphine Sulfate 2 mg Q30M PRN IV 02/23/24 06:45 Amlodipine Besylate 10 mg DAILY PO 02/24/24 10:00 02/24/24 08:58 10 MG Ceftriaxone Sodium 50 ml @ 100 mls/hr DAILY@09 IV 02/24/24 09:00 02/24/24 08:58 100 MLS/HR Metoprolol Tartrate 25 mg BID PO 02/23/24 22:00 02/24/24 08:58 25 MG Examination: GENERAL:Normal, HEENT:Normal, NECK:Normal, LUNGS:Normal, CVS:Normal, ABDOMEN:Normal, MSK:Normal, SKIN:Abnormal, NEURO:Normal, :Normal laboratory and microbiology Laboratory Tests 02/24/24 06:09 Test 02/24/24 06:09 Range/Units Serum Glucose 93 74-106 mg/dL Microbiology Date/Time Source Procedure Growth Status 02/23/24 18:47 Voided Urine Urine Culture - Preliminary Resulted Problem List/Assessment/Plan Problem List/Assessment/Plan Acute kidney injury versus ESRD Underlying Chronic kidney disease unknown exact baseline Hypertensive emergency Anemia 2+ proteinuria UTI Recommendations Recommend renal replacement therapy for solute clearance Check CHARISSA panel C3-C4 anti-GBM HIV, hepatitis panel Blood pressure control DC IV fluids Atrophic kidneys b/l on US HD tomorrow after cath placement/clinical social work therapist for chair time with DCD Plan discussed with: Patient, Other My Orders My Orders Orders - NONA SEN MD Procedure Category Date Status Time * Radiologist Consult CONS 02/23/24 Transmitted 15:14 Complement C3 & C4 LAB 02/24/24 In Process 04:00 Charissa; Comprehensive LAB 02/24/24 In Process Panel 04:00 Antiglomerular Bm LAB 02/24/24 In Process Antibody 04:00 Basic Metabolic Panel LAB 02/25/24 Verified 05:00 Basic Metabolic Panel LAB 02/26/24 Verified 05:00 Basic Metabolic Panel LAB 02/27/24 Verified 05:00 Basic Metabolic Panel LAB 02/28/24 Verified 05:00 Basic Metabolic Panel LAB 02/29/24 Verified 05:00 Basic Metabolic Panel LAB 03/01/24 Verified 05:00 NONA SEN MD Feb 24, 2024 12:10
--- NOTE | 2024-02-24 13:38 | DVHSR ---
APPROVED REPORT EXAM: Two-dimensional and M-mode echocardiogram with Doppler and color Doppler. Blood Pressure: 145/80 mmHg INDICATION CHF RISK FACTORS Height: 66, Weight: 157 DIMENSIONS LVDd4.5 (3.8-5.7cm)LA (2D)4.0 (1.9-4.0cm)Aortic Root2.8 (2.0-3.7cm) LVDs3.0 (2.5-4.0cm)LA (MM) (1.9-4.0cm)Aortic Cusp Exc1.6 (1.5-2.0cm) EF (%) 64.0 (55-70%)Rt. Atrium3.9 (1.9-4.0cm)Asc. Aorta cm IVSd1.1 (0.7-1.1cm)RV (D) (1.8-2.4cm) PWd1.2 (0.7-1.1cm) Mitral Valve MitralMitral Stenosis E wave0.81m/sMV Mean GR.mmHg A wave0.88m/sMV Peak GR.75mmHg E/A ratio0.92D MVAcm2 DECEL [id number] 1/2 [id number] IVRTmsDop MVA3.65cm2 Aortic Valve Aortic ValveAortic Stenosis V11.07m/Ashish Mean GR.4mmHg V21.48m/Ashish Peak GR.9mmHg LVOT Diameter2.0 (1.8-2.4cm)Doppler AVA2.27cm2 Pulmonic Valve V20.95m/s LEFT VENTRICLE Normal left ventricular size. There is borderline left ventricular hypertrophy. Left ventricular sy stolic function is normal with an estimated ejection fraction of 65%. There is no regional wall zulema on abnormalities. E to E prime ratio is in the normal range. Diastolic function appears to be prese rved. RIGHT VENTRICLE The right ventricle is of normal size. Systolic function is normal. ATRIA Both atria are of normal size. MITRAL VALVE Normal structure and function. There is trace mitral regurgitation. PULMONIC VALVE Likely normal. TRICUSPID VALVE Normal structure and function. There is trace tricuspid regurgitation. PA systolic pressure could n ot be adequately estimated. AORTIC VALVE Normal structure and function. No significant stenosis or regurgitation. GREAT VESSELS The aortic root and proximal ascending aorta are of normal size. PERICARDIAL EFFUSION No pericardial effusion. IVC is of normal size and collapses normally with inspiration. Conclusion Normal left ventricular size and systolic function. Ejection fraction is estimated at 65%. Normal right ventricular size and systolic function. Borderline left ventricular hypertrophy. No hemodynamically significant valvular disease. No pericardial effusion. PA systolic pressure is not adequately estimated.
--- NOTE | 2024-02-24 15:19 | DVHPN2 ---
Progress Note Date Seen: Feb 24, 2024 Medical Necessity Reason Pt with a Central, PICC or Fol: No Subjective Patient reports: No new complaints Review of Systems: HEENT:Normal, CVS:Normal, RESPIRATORY:Normal, GI:Normal, :Normal, MSK:Normal, NEURO:Normal Objective vital signs Vital Sign Date Time Temp Pulse Resp B/P (MAP) Pulse Ox O2 Delivery O2 Flow Rate FiO2 02/24/24 12:30 98.0 72 17 151/83 (105) 97 98.0 02/24/24 07:51 Room Air* 0 21 Total Intake and Output 02/23/24 02/23/24 02/24/24 15:00 23:00 07:00 Intake Total 300 ml Output Total 30 ml Balance -30 ml 300 ml medications Current Medications Medications Dose Ordered Sig/Gildardo Route Start Time Stop Time Status Last Admin Dose Admin Hydralazine HCl 10 mg Q6HP PRN IV 02/23/24 06:45 02/23/24 16:27 10 MG Acetaminophen/ Hydrocodone Bitart 1 tab Q4HP PRN PO 02/23/24 06:45 Ondansetron HCl 4 mg Q4HP PRN IV 02/23/24 06:45 Acetaminophen 650 mg Q6HP PRN PO 02/23/24 06:45 Nitroglycerin 0.4 mg Q5MINP PRN SL 02/23/24 06:45 Morphine Sulfate 2 mg Q30M PRN IV 02/23/24 06:45 Amlodipine Besylate 10 mg DAILY PO 02/24/24 10:00 02/24/24 08:58 10 MG Ceftriaxone Sodium 50 ml @ 100 mls/hr DAILY@09 IV 02/24/24 09:00 02/24/24 08:58 100 MLS/HR Metoprolol Tartrate 25 mg BID PO 02/23/24 22:00 02/24/24 08:58 25 MG Examination: GENERAL:Normal, HEENT:Normal, NECK:Normal, LUNGS:Normal, CVS:Normal, ABDOMEN:Normal, MSK:Normal, SKIN:Normal, NEURO:Normal, :Normal laboratory and microbiology Laboratory Tests 02/24/24 06:09 Test 02/24/24 06:09 Range/Units Serum Glucose 93 74-106 mg/dL Microbiology Date/Time Source Procedure Growth Status 02/23/24 18:47 Voided Urine Urine Culture - Preliminary Resulted Problem List/Assessment/Plan Problem List/Assessment/Plan #1 hypertensive urgency: adjust meds #2 acute on chronic renal failure/vmn: dialysis planned #3 anemia #4 gout: check uric acid #5 acute systolic/diastolic heart failure: echo #6 uti: culture, rocephin unstable for transfer advance care planning- full code- time spent 19 mins Plan discussed with: Patient, Spouse Date of Service: Feb 24, 2024 Billing Provider: ANU SHERIFF MD Common Visit Codes: [id number] INP/OBS CARE(HIGH) Secondary Visit Codes: [id number] CARE PLAN 30 MINUTES ANU SHERIFF MD Feb 24, 2024 15:19
[2024-02-24] MEDS: CALCIUM ACETATE 667 MG CAP PO ONE (15:30)
[2024-02-24] MEDS: CALCIUM ACETATE 667 MG CAP PO SCH (17:18)
[2024-02-24] MEDS: POTASSIUM EFFERVESENT TAB 25 MEQ PO ONE (17:19)
[2024-02-25] VITALS (14 sets, daily range): BP systolic 119–142; BP diastolic 63–77; PULSE 64–94; RESP 13–21; TEMP 97.9–98.3; O2SAT 96–100
[2024-02-25] MEDS ORDERED: SODIUM CHL 0.9% 1000 ML BAG XX ONE (07:00)
[2024-02-25 08:06] LABS: Complement C3 97 mg/dL (82-167)
[2024-02-25 08:57] LABS: Anion Gap 15 (5-15); Chloride 99 mmol/L (98-107)
[2024-02-25 09:02] LABS: Eosinophils # (auto) 0.8 10 ^3/uL (0-0.8); Monocytes # (auto) 0.5 10 ^3/uL (0-1.3); Neutrophils # (auto) 5.2 10 ^3/uL (1.6-8.6); White Blood Cell 8.1 10^3/uL (4.4-10.8)
[2024-02-25 09:03] LABS: BUN/Creatinine Ratio 10.7 (10.0-20.0); Glucose 90 mg/dL (74-106)
[2024-02-25 09:08] LABS: Basophils # (auto) 0.1 10 ^3/uL (0-0.2); Basophils % (auto) 0.9 % (0.0-2.0); Eosinophils % (auto) 9.4 % (0.0-7.0); Hematocrit 22.3 % (41.0-53.0); Hemoglobin 7.7 g/dL (13.5-17.5); Lymphocytes # (auto) 1.6 10 ^3/uL (0.4-5.4); Lymphocytes % (auto) 19.4 % (10.0-50.0); Mean Corpuscular Hemoglobin 29.8 pg (28.0-32.0); Mean Corpuscular Hgb Conc. 34.3 g/dL (32.0-36.0); Mean Corpuscular Volume 86.7 fL (80.0-100.0); Monocytes % (auto) 6.5 % (0.0-12.0); Neutrophils % (auto) 63.8 % (37.0-80.0); Platelet Count (auto) 161 10^3/uL (140-450); Red Blood Cells 2.57 10^6/uL (4.5-5.90); Red Cell Distribution Width 15.6 % (11.8-14.3)
[2024-02-25 09:09] LABS: Calcium 7.3 mg/dL (8.7-10.4); Carbon Dioxide 17 mmol/L (20-31); Potassium 3.4 mmol/L (3.5-5.1); Sodium 131 mmol/L (136-145)
[2024-02-25 09:10] LABS: Blood Urea Nitrogen 104 mg/dL (9-23)
[2024-02-25] MEDS: ALLOPURINOL 100 MG TAB PO SCH (09:16)
[2024-02-25 12:06] LABS: Anti-Centromere B Antibody <0.2 AI (0.0-0.9); Anti-Jo-1 Antibody <0.2 AI (0.0-0.9); Anti-dsDNA Antibody 2 IU/mL (0-9); Antichromatin Antibody <0.2 AI (0.0-0.9); Antiscleroderma-70 Antibody <0.2 AI (0.0-0.9); RNP Antibody <0.2 AI (0.0-0.9); Sjogren's Anti-SS-A Antibody <0.2 AI (0.0-0.9); Sjogren's Anti-SS-B Antibody <0.2 AI (0.0-0.9); Smith Antibody <0.2 AI (0.0-0.9)
--- NOTE | 2024-02-25 12:14 | DVHDS2 ---
Discharge Summary Date of Admission Feb 23, 2024 at 06:41 Date of Discharge: Feb 25, 2024 Labs/Diagnostic Data: Laboratory Results Test 02/25/24 06:45 02/24/24 06:09 02/23/24 18:47 02/23/24 08:00 White Blood Count 8.1 10^3/uL (4.4-10.8) Red Blood Count 2.57 10^6/uL (4.5-5.90) Hemoglobin 7.7 g/dL (13.5-17.5) Hematocrit 22.3 % (41.0-53.0) Mean Corpuscular Volume 86.7 fL (80.0-100.0) Mean Corpuscular Hemoglobin 29.8 pg (28.0-32.0) Mean Corpuscular Hemoglobin Concent 34.3 g/dL (32.0-36.0) Red Cell Distribution Width 15.6 % (11.8-14.3) Platelet Count 161 10^3/uL (140-450) Mean Platelet Volume 7.3 fL (6.9-10.8) Neutrophils (%) (Auto) 63.8 % (37.0-80.0) Lymphocytes (%) (Auto) 19.4 % (10.0-50.0) Monocytes (%) (Auto) 6.5 % (0.0-12.0) Eosinophils (%) (Auto) 9.4 % (0.0-7.0) Basophils (%) (Auto) 0.9 % (0.0-2.0) Neutrophils # (Auto) 5.2 10 ^3/uL (1.6-8.6) Lymphocytes # (Auto) 1.6 10 ^3/uL (0.4-5.4) Monocytes # (Auto) 0.5 10 ^3/uL (0-1.3) Eosinophils # (Auto) 0.8 10 ^3/uL (0-0.8) Basophils # (Auto) 0.1 10 ^3/uL (0-0.2) Nucleated Red Blood Cells 0.0 % Sodium Level 131 mmol/L (136-145) Potassium Level 3.4 mmol/L (3.5-5.1) Chloride Level 99 mmol/L (98-107) Carbon Dioxide Level 17 mmol/L (20-31) Anion Gap 15 (5-15) Blood Urea Nitrogen 104 mg/dL (9-23) Creatinine 9.76 mg/dL (0.700-1.30) Glomerular Filtration Rate Calc 6 mL/min (>90) BUN/Creatinine Ratio 10.7 (10.0-20.0) Serum Glucose 90 mg/dL (74-106) Calcium Level 7.3 mg/dL (8.7-10.4) Prothrombin Time 10.8 sec (9.3-11.8) Prothrombin Time INR 1.02 (0.9-1.15) Activated Partial Thromboplast Time 30.1 SEC (24.5-34.5) Uric Acid 9.2 mg/dL (3.7-9.2) Phosphorus Level 8.7 mg/dL (2.4-5.1) Magnesium Level 1.9 mg/dL (1.6-2.6) Total Bilirubin 0.4 mg/dL (0.2-1.0) Aspartate Amino Transferase (AST) 8 U/L (13-40) Alanine Aminotransferase (ALT) 16 U/L (7-40) Alkaline Phosphatase 112 U/L (46-116) Total Protein 6.8 g/dL (5.7-8.2) Albumin 4.0 g/dL (3.2-4.8) Vitamin D 25-Hydroxy 30.7 ng/mL (30.0-100) Anti-Nuclear Antibody Comment Comment (.) CHAYA-1 Antibody <0.2 AI (0.0-0.9) SS-A/Ro Antibody <0.2 AI (0.0-0.9) SS-B/La Antibody <0.2 AI (0.0-0.9) Sm Antibody <0.2 AI (0.0-0.9) PREVENTION SPECIALIST Antibody <0.2 AI (0.0-0.9) Scl-70 (Scleroderma) Antibody <0.2 AI (0.0-0.9) Anti-Double Strand DNA Antibody 2 IU/mL (0-9) Chromatin Antibody <0.2 AI (0.0-0.9) Centromere B Antibody <0.2 AI (0.0-0.9) Complement C3 97 mg/dL (82-167) Complement C4 28 mg/dL (12-38) Hepatitis A IgM Antibody Negative Hepatitis B Surface Antigen Negative (Negative) Hepatitis B Core IgM Antibody Negative (Negative) Hepatitis C Antibody Negative (Negative) Urine Creatinine 33.60 mg/dL (30.0-125.0) Urine Sodium 50 mmol/L (40-220) Urine Total Protein 178.4 mg/dL (1-14) Urine Color Colorless (Yellow) Urine Clarity Clear (Clear) Urine pH 6.0 (5.0-9.0) Urine Specific [place] 1.006 (1.001-1.035) Urine Protein 2+ (Negative) Urine Ketones Negative (Negative) Urine Blood Trace /uL (Negative) Urine Nitrite Negative (Negative) Urine Bilirubin Negative (Negative) Urine Urobilinogen Normal mg/dL (Negative) Urine Leukocyte Esterase 2+ /uL (Negative) Urine RBC 1 /hpf (0 - 3) Urine WBC 20 /hpf (0 - 3) Urine Squamous Epithelial Cells None seen /hpf (<5) Urine Bacteria Many /hpf (None Seen) Urine Yeast (Budding) Occasional /hpf (None Urine Glucose Normal mg/dL (Normal) Stool Occult Blood Negative (Negative) Stool Occult Blood Sample #3 (Negative) Test 02/23/24 07:06 02/23/24 00:14 02/22/24 21:24 02/22/24 17:04 Reticulocyte Count (auto) 3.26 % (0.5-1.5) Haptoglobin 32 mg/dL (29-370) Iron Level 54 ug/dL (65-175) Total Iron Binding Capacity 284 ug/dL (250-425) Percent Iron Saturation 19.0 % (20-55) Troponin I High Sensitivity 15 ng/L (</=54) B-Type Natriuretic Peptide 8.90 pg/mL (0-100) Blood Gas Specimen Type Arterial Blood Gas Sample Site Right radial Blood Gas Patient Temperature 37.0 Arterial Blood Date Drawn [id number] Arterial Blood pH 7.341 (7.350-7.450) Arterial Blood Partial Pressure CO2 30.1 mmHg (35.0-48.0) Arterial Blood Partial Pressure O2 99.7 mmHg (83.0-108.0) Arterial Blood HCO3 15.9 mmol/L (21.0-28.0) Arterial Blood Oxygen Saturation 97.2 % (94.0-98.0) Arterial Blood Base Excess -8.8 mmol/L (-2.0-3.0) Arterial Blood Oxyhemoglobin 96.4 % (94.0-98.0) Arterial Blood Carboxyhemoglobin 0.1 % (0.5-1.5) Arterial Blood Methemoglobin 0.7 % (0.0-1.5) [place] Test Yes Blood Gas Total Hemoglobin 8.80 g/dL (13.5-17.5) Blood Gas Modality Room air FiO2 % 21.0 Other Laboratory Tests 02/25/24 06:45 Brief Hx & Hospital Course: patient here for HTN crisis, noted to have tyshawn on ckd, meeting acute indication for HD with poor clearance of azotemia. uti also present. patient vitals are stable but needs ongoing eval for HD and renal stabilization. Diagnosis: Hypertensive urgency; acute on chronic renal failure; anemia, AICD likely from renal failure; gout; acute systolic/diastolic heart failure; acute cystitis; stable to transfer to [facility]. - continue ceftriaxone for UTI - HD cath inserted - defer further eval to [facility] - HTN - continue metoprolol and amlodipine po. stable BP. Condition at Discharge: Fair Final Diagnosis/Problems List Hypertensive urgency; acute on chronic renal failure; anemia, AICD likely from renal failure; gout; acute systolic/diastolic heart failure; acute cystitis; Discharge Disposition: Acute Care Facility Discharge Statement: "Patient was advised to return to the ER or call 911 if any headaches, dizziness, shortness of breath, chest pain, abdominal pain, bleeding, fevers, or worsening of medical condition. Patient was counseled about treatment plan, medications, possible side effects, patientverbalized understanding. All questions were answered to the best of my ability. This discharge took greater then 30 minutes in planning, reviewing documentation, counseling the patient, and discussing with other team members." ASSESSMENT ASSESSMENT Assessment Hypertensive urgency; acute on chronic renal failure; anemia, AICD likely from renal failure; gout; acute systolic/diastolic heart failure; acute cystitis; Date of Service: Feb 25, 2024 Billing Provider: KHLOE HILL MD Common Visit Codes: [id number] DISCH DAY >30min KHLOE HILL MD Feb 25, 2024 12:14
--- NOTE | 2024-02-25 15:24 | DVHPN2 ---
Progress Note Date Seen: Feb 25, 2024 Medical Necessity Reason Pt with a Central, PICC or Fol: No Subjective Review of Systems Awaiting tx to [facility]. Awaiting HD cath Patient reports: No new complaints Objective vital signs Vital Sign Date Time Temp Pulse Resp B/P (MAP) Pulse Ox O2 Delivery O2 Flow Rate FiO2 02/25/24 13:00 98.1 73 20 139/74 (95) 99 98.1 02/25/24 08:00 Room Air* 0 21 Total Intake and Output 02/24/24 02/24/24 02/25/24 15:00 23:00 07:00 Intake Total 50 ml 2336 ml 240 ml Output Total 250 ml 700 ml 2 ml Balance -200 ml 1636 ml 238 ml medications Current Medications Medications Dose Ordered Sig/Gildardo Route Start Time Stop Time Status Last Admin Dose Admin Hydralazine HCl 10 mg Q6HP PRN IV 02/23/24 06:45 02/24/24 20:48 10 MG Acetaminophen/ Hydrocodone Bitart 1 tab Q4HP PRN PO 02/23/24 06:45 Ondansetron HCl 4 mg Q4HP PRN IV 02/23/24 06:45 Acetaminophen 650 mg Q6HP PRN PO 02/23/24 06:45 Nitroglycerin 0.4 mg Q5MINP PRN SL 02/23/24 06:45 Morphine Sulfate 2 mg Q30M PRN IV 02/23/24 06:45 Amlodipine Besylate 10 mg DAILY PO 02/24/24 10:00 02/25/24 09:15 10 MG Ceftriaxone Sodium 50 ml @ 100 mls/hr DAILY@09 IV 02/24/24 09:00 02/25/24 09:17 100 MLS/HR Metoprolol Tartrate 25 mg BID PO 02/23/24 22:00 02/25/24 09:16 25 MG Allopurinol 100 mg DAILY PO 02/25/24 10:00 02/25/24 09:16 100 MG Calcium Acetate 1,334 mg TIDWMEALS PO 02/24/24 18:00 02/24/24 17:18 1,334 MG Examination Gen: In no acute distress. Appears stated age Pulm: Bilateral air entry, no rales CVS:RRR, normal S1 and S2 Ext: No edema Neuro: A&Ox4 laboratory and microbiology Laboratory Tests 02/25/24 06:45 Test 02/25/24 06:45 Range/Units Serum Glucose 90 74-106 mg/dL Microbiology Date/Time Source Procedure Growth Status 02/25/24 06:55 Nose MRSA Screen - Final Complete 02/23/24 18:47 Voided Urine Urine Culture - Final Escherichia coli Complete Labs and/or images reviewed: Labs reviewed by me Problem List/Assessment/Plan Problem List/Assessment/Plan IMP Acute kidney injury versus ESRD Underlying Chronic kidney disease unknown exact baseline Hypertensive emergency-improving blood pressures Anemia-ongoing 2+ proteinuria UTI Atrophic kidneys b/l on US REC Awaiting tx to [facility] Recommend renal replacement therapy for solute clearance Check JOSELITO panel C3-C4 anti-GBM HIV, hepatitis panel Blood pressure control HD after cath placement/social service assistant for chair time with DCD Strict I&O We will continue to follow Case discussed with Dr. Luiz Powell Plan discussed with: Patient DAVE JEFFERSON JILL Feb 25, 2024 15:24
[2024-02-25] MEDS: HEPARIN SODIUM (PORCINE) 5000 UNITS/ML 1ML VIAL ONE (16:38)
[2024-02-25] MEDS: fentaNYL CITRATE 100 MCG/2 ML VL ONE (16:38)
[2024-02-25] MEDS: MIDAZOLAM HCL 2MG/2ML 2ml VIAL (1mg/ml) ONE (16:39)
[2024-02-25] MEDS: LIDOCAINE 2%HCL (LOCAL ANESTH.) INJ 20ML MDV ONE (16:39)
[2024-02-25] MEDS: ceFAZolin 1GM/50ML 50 ML IV ONE (16:44)
[2024-02-25] MEDS: HYDROcodone-ACET 5/325MG TAB PO PRN (20:28)
[2024-02-25 21:34] LABS: Basophils # (auto) 0.1 10 ^3/uL (0-0.2); Eosinophils # (auto) 0.5 10 ^3/uL (0-0.8); Hemoglobin 8.3 g/dL (13.5-17.5); Monocytes # (auto) 0.5 10 ^3/uL (0-1.3); Neutrophils # (auto) 7.3 10 ^3/uL (1.6-8.6); White Blood Cell 9.3 10^3/uL (4.4-10.8)
[2024-02-25 21:37] LABS: Basophils % (auto) 0.7 % (0.0-2.0); Lymphocytes % (auto) 10.7 % (10.0-50.0); Mean Corpuscular Hgb Conc. 34.6 g/dL (32.0-36.0); Mean Corpuscular Volume 86.8 fL (80.0-100.0); Monocytes % (auto) 5.4 % (0.0-12.0); Neutrophils % (auto) 78.2 % (37.0-80.0); Platelet Count (auto) 188 10^3/uL (140-450); Red Blood Cells 2.76 10^6/uL (4.5-5.90); Red Cell Distribution Width 16.1 % (11.8-14.3)
[2024-02-25 21:48] LABS: Alanine Aminotransferase 20 U/L (7-40); Albumin 4.4 g/dL (3.2-4.8); Anion Gap 17 (5-15); BUN/Creatinine Ratio 10.4 (10.0-20.0); Chloride 99 mmol/L (98-107); Potassium 3.8 mmol/L (3.5-5.1)
[2024-02-25 21:49] LABS: Alkaline Phosphatase 125 U/L (46-116); Aspartate Aminotransferase 11 U/L (13-40); Bilirubin, Total 0.3 mg/dL (0.2-1.0); Calcium 7.5 mg/dL (8.7-10.4); Carbon Dioxide 17 mmol/L (20-31); Glucose 154 mg/dL (74-106); Sodium 133 mmol/L (136-145); Total Protein 7.7 g/dL (5.7-8.2)
[2024-02-25 21:51] LABS: Blood Urea Nitrogen 107 mg/dL (9-23)
[2024-02-26] VITALS (7 sets, daily range): BP systolic 131–166; BP diastolic 68–84; PULSE 76–92; RESP 16–20; TEMP 98.2–98.4; O2SAT 95–99
[2024-02-26] MEDS: EPOETIN ALFA-EPBX 4,000 UNIT/ML VIAL SC ONE (01:40)
[2024-02-26 08:55] LABS: Basophils # (auto) 0 10 ^3/uL (0-0.2); Basophils % (auto) 0.6 % (0.0-2.0); Eosinophils # (auto) 0.4 10 ^3/uL (0-0.8); Hemoglobin 7.1 g/dL (13.5-17.5); Lymphocytes # (auto) 0.9 10 ^3/uL (0.4-5.4); Lymphocytes % (auto) 16.2 % (10.0-50.0); Mean Corpuscular Volume 85.3 fL (80.0-100.0)
[2024-02-26 08:57] LABS: Eosinophils % (auto) 7.1 % (0.0-7.0); Hematocrit 20.3 % (41.0-53.0); Mean Corpuscular Hgb Conc. 35.2 g/dL (32.0-36.0); Monocytes # (auto) 0.4 10 ^3/uL (0-1.3); Monocytes % (auto) 6.5 % (0.0-12.0); Neutrophils % (auto) 69.6 % (37.0-80.0); Platelet Count (auto) 148 10^3/uL (140-450); Red Blood Cells 2.38 10^6/uL (4.5-5.90); Red Cell Distribution Width 16.2 % (11.8-14.3); White Blood Cell 5.8 10^3/uL (4.4-10.8)
[2024-02-26 09:36] LABS: Chloride 104 mmol/L (98-107); Sodium 138 mmol/L (136-145)
[2024-02-26 09:37] LABS: Anion Gap 11 (5-15); Carbon Dioxide 23 mmol/L (20-31)
[2024-02-26 09:42] LABS: BUN/Creatinine Ratio 8.7 (10.0-20.0); Glucose 89 mg/dL (74-106)
[2024-02-26 09:43] LABS: Blood Urea Nitrogen 58 mg/dL (9-23); Calcium 7.9 mg/dL (8.7-10.4); Potassium 3.4 mmol/L (3.5-5.1)
--- NOTE | 2024-02-26 09:45 | DVHPN2 ---
Subjective doign well. no changes Reviewed: H&P Changes from previous H/P or p: No Changes General: Per HPI Objective Vitals Vital Signs Date Time Temp Pulse Resp B/P (MAP) Pulse Ox O2 Delivery O2 Flow Rate FiO2 02/26/24 09:00 98.3 82 20 142/70 (94) 95 98.3 02/26/24 08:00 Room Air* 0 21 Intake/Output Intake and Output 02/26/24 06:59 Intake Total 225 ml Output Total 300 ml Balance -75 ml Intake Oral 225 ml Output Urine Total 300 ml # Voids 3 Exam GEN: Healthy appearing, well-developed, NAD. CV: RRR, no m/r/g. LUNGS: CTAB, no w/r/c. ABD: Soft, NT/ND, NBS, no masses or organomegaly. : N/A SKIN: Warm, well perfused. No skin rashes or abnormal lesions. MSK: Normal gait. No deformities. EXT: No clubbing, cyanosis, or edema. NEURO: Ambulating with no limitations. No focal deficits. Medications Current Medications Medications Dose Ordered Sig/Gildardo Route Start Time Stop Time Status Last Admin Dose Admin Hydralazine HCl 10 mg Q6HP PRN IV 02/23/24 06:45 02/26/24 06:38 10 MG Acetaminophen/ Hydrocodone Bitart 1 tab Q4HP PRN PO 02/23/24 06:45 02/25/24 20:28 1 TAB Ondansetron HCl 4 mg Q4HP PRN IV 02/23/24 06:45 Acetaminophen 650 mg Q6HP PRN PO 02/23/24 06:45 Nitroglycerin 0.4 mg Q5MINP PRN SL 02/23/24 06:45 Morphine Sulfate 2 mg Q30M PRN IV 02/23/24 06:45 Amlodipine Besylate 10 mg DAILY PO 02/24/24 10:00 02/26/24 08:38 10 MG Ceftriaxone Sodium 50 ml @ 100 mls/hr DAILY@09 IV 02/24/24 09:00 02/26/24 08:36 100 MLS/HR Metoprolol Tartrate 25 mg BID PO 02/23/24 22:00 02/26/24 08:38 25 MG Allopurinol 100 mg DAILY PO 02/25/24 10:00 02/26/24 08:37 100 MG Calcium Acetate 1,334 mg TIDWMEALS PO 02/24/24 18:00 02/26/24 08:36 1,334 MG Laboratory Results Laboratory Tests 02/26/24 07:47 Chemistry Test 02/25/24 21:18 02/26/24 07:47 Albumin 4.4 g/dL (3.2-4.8) Calcium Level 7.5 mg/dL (8.7-10.4) L Pending Total Protein 7.7 g/dL (5.7-8.2) LFT Test 02/25/24 21:18 Alanine Aminotransferase (ALT) 20 U/L (7-40) Alkaline Phosphatase 125 U/L (46-116) H Aspartate Amino Transferase (AST) 11 U/L (13-40) L Total Bilirubin 0.3 mg/dL (0.2-1.0) Urinalysis Test 02/23/24 08:00 02/23/24 18:47 Urine Color Colorless (Yellow) Urine Clarity Clear (Clear) Urine pH 6.0 (5.0-9.0) Urine Specific [place] 1.006 (1.001-1.035) Urine Protein 2+ (Negative) H Urine Ketones Negative (Negative) Urine Blood Trace /uL (Negative) H Urine Nitrite Negative (Negative) Urine Bilirubin Negative (Negative) Urine Urobilinogen Normal mg/dL (Negative) Urine Leukocyte Esterase 2+ /uL (Negative) Urine RBC 1 /hpf (0 - 3) Urine WBC 20 /hpf (0 - 3) Urine Squamous Epithelial Cells None seen /hpf (<5) Urine Bacteria Many /hpf (None Seen) H Urine Yeast (Budding) Occasional /hpf (None Urine Glucose Normal mg/dL (Normal) Urine Creatinine 33.60 mg/dL (30.0-125.0) Urine Sodium 50 mmol/L (40-220) Urine Total Protein 178.4 mg/dL (1-14) H Microbiology Microbiology Date/Time Source Procedure Growth Status 02/25/24 06:55 Nose MRSA Screen - Final Complete 02/23/24 18:47 Voided Urine Urine Culture - Final Escherichia coli Complete Labs and/or images reviewed: Labs reviewed by me, Image(s) reviewed by me Assessment/Plan Assessment/Plan patient here for HTN crisis, noted to have tyshawn on ckd, meeting acute indication for HD with poor clearance of azotemia. uti also present. patient vitals are stable but needs ongoing eval for HD and renal stabilization. assessment Hypertensive urgency; acute on chronic renal failure; anemia, AoCD likely from renal failure; gout; acute systolic/diastolic heart failure; acute cystitis; plan stable to transfer to [place]. - continue ceftriaxone for supple UTI - HD cath inserted , status post HD last night 02/24.- defer further eval to [place] - HTN - continue metoprolol and amlodipine po. stable BP. Plan discussed with: Patient My Orders Orders - KHLOE HILL MD Procedure Category Date Status Time * Spinner Continuous CONS 02/25/24 Transmitted Consult Discharge DISCHARGE 02/25/24 Transmitted 12:15 * Spinner Continuous CONS 02/26/24 Verified Consult Date of Service: Feb 26, 2024 Billing Provider: KHLOE HILL MD Common Visit Codes: [id number] INP/OBS CARE(MOD) KHLOE HILL MD Feb 26, 2024 09:45
--- NOTE | 2024-02-26 15:01 | DVHPN2 ---
Progress Note Date Seen: Feb 26, 2024 Medical Necessity Reason Pt with a Central, PICC or Fol: No Subjective Review of Systems Pt reports he had dialysis early this morning, and tolerated well . Patient reports: No new complaints Objective vital signs Vital Sign Date Time Temp Pulse Resp B/P (MAP) Pulse Ox O2 Delivery O2 Flow Rate FiO2 02/26/24 13:00 98.3 76 20 131/68 (89) 96 98.3 02/26/24 08:00 Room Air* 0 21 Total Intake and Output 02/25/24 02/25/24 02/26/24 15:00 23:00 07:00 Intake Total 0 ml 225 ml Output Total 300 ml Balance 0 ml -75 ml medications Current Medications Medications Dose Ordered Sig/Gildardo Route Start Time Stop Time Status Last Admin Dose Admin Hydralazine HCl 10 mg Q6HP PRN IV 02/23/24 06:45 02/26/24 06:38 10 MG Acetaminophen/ Hydrocodone Bitart 1 tab Q4HP PRN PO 02/23/24 06:45 02/25/24 20:28 1 TAB Ondansetron HCl 4 mg Q4HP PRN IV 02/23/24 06:45 Acetaminophen 650 mg Q6HP PRN PO 02/23/24 06:45 Nitroglycerin 0.4 mg Q5MINP PRN SL 02/23/24 06:45 Morphine Sulfate 2 mg Q30M PRN IV 02/23/24 06:45 Amlodipine Besylate 10 mg DAILY PO 02/24/24 10:00 02/26/24 08:38 10 MG Ceftriaxone Sodium 50 ml @ 100 mls/hr DAILY@09 IV 02/24/24 09:00 02/26/24 08:36 100 MLS/HR Metoprolol Tartrate 25 mg BID PO 02/23/24 22:00 02/26/24 08:38 25 MG Allopurinol 100 mg DAILY PO 02/25/24 10:00 02/26/24 08:37 100 MG Calcium Acetate 1,334 mg TIDWMEALS PO 02/24/24 18:00 02/26/24 12:22 1,334 MG Examination Gen: In no acute distress. Appears stated age Pulm: Bilateral air entry, no rales CVS:RRR, normal S1 and S2 Ext: No edema Neuro: A&Ox4 laboratory and microbiology Laboratory Tests 02/26/24 07:47 Test 02/26/24 07:47 Range/Units Serum Glucose 89 74-106 mg/dL Microbiology Date/Time Source Procedure Growth Status 02/25/24 06:55 Nose MRSA Screen - Final Complete 02/23/24 18:47 Voided Urine Urine Culture - Final Escherichia coli Complete Labs and/or images reviewed: Labs reviewed by me Problem List/Assessment/Plan Problem List/Assessment/Plan IMP Acute kidney injury versus ESRD- Last HD on 02/25 Underlying Chronic kidney disease unknown exact baseline Hypertensive emergency-improving blood pressures Anemia-ongoing 2+ proteinuria UTI Atrophic kidneys b/l on US REC Awaiting tx to [facility] Recommend renal replacement therapy for solute clearance next tentatively 02/28 Check JOSELITO panel C3-C4 anti-GBM HIV, hepatitis panel Awaiting chair time with DCD Strict I&O We will continue to follow Case discussed with Dr. Luiz Powell Plan discussed with: Patient [facility] Feb 26, 2024 15:01
[2024-02-26] MEDS: ONDANSETRON HCL 4 MG/2 ML VIAL IV PRN (20:42)
[2024-02-27] VITALS (7 sets, daily range): BP systolic 143–168; BP diastolic 64–82; PULSE 70–98; RESP 18–19; TEMP 98–98.6; O2SAT 84–98
[2024-02-27 07:56] LABS: Alanine Aminotransferase 18 U/L (7-40); Alkaline Phosphatase 100 U/L (46-116); Anion Gap 12 (5-15); Aspartate Aminotransferase 16 U/L (13-40); BUN/Creatinine Ratio 8.1 (10.0-20.0); Carbon Dioxide 23 mmol/L (20-31); Chloride 100 mmol/L (98-107); Glucose 90 mg/dL (74-106); Potassium 3.7 mmol/L (3.5-5.1)
[2024-02-27 07:57] LABS: Albumin 3.6 g/dL (3.2-4.8); Bilirubin, Total 0.3 mg/dL (0.2-1.0); Total Protein 6.3 g/dL (5.7-8.2)
[2024-02-27 07:58] LABS: Blood Urea Nitrogen 60 mg/dL (9-23); Calcium 7.8 mg/dL (8.7-10.4); Sodium 135 mmol/L (136-145)
--- NOTE | 2024-02-27 11:16 | DVHPN2 ---
Subjective doign well. no changes Reviewed: H&P Changes from previous H/P or p: No Changes General: Per HPI Objective Vitals Vital Signs Date Time Temp Pulse Resp B/P (MAP) Pulse Ox O2 Delivery O2 Flow Rate FiO2 02/27/24 09:32 70 155/80 02/27/24 09:00 98.4 19 97 98.4 02/27/24 08:00 Room Air* 0 21 Intake/Output Intake and Output 02/27/24 07:00 Intake Total 1350 ml Output Total 950 ml Balance 400 ml Intake Oral 1300 ml IV Total 50 ml Output Urine Total 950 ml # Bowel Movements 2 Exam GEN: Healthy appearing, well-developed, NAD. CV: RRR, no m/r/g. LUNGS: CTAB, no w/r/c. ABD: Soft, NT/ND, NBS, no masses or organomegaly. : N/A SKIN: Warm, well perfused. No skin rashes or abnormal lesions. MSK: Normal gait. No deformities. EXT: No clubbing, cyanosis, or edema. NEURO: Ambulating with no limitations. No focal deficits. Medications Current Medications Medications Dose Ordered Sig/Gildardo Route Start Time Stop Time Status Last Admin Dose Admin Hydralazine HCl 10 mg Q6HP PRN IV 02/23/24 06:45 02/26/24 06:38 10 MG Acetaminophen/ Hydrocodone Bitart 1 tab Q4HP PRN PO 02/23/24 06:45 02/26/24 18:19 1 TAB Ondansetron HCl 4 mg Q4HP PRN IV 02/23/24 06:45 02/26/24 20:42 4 MG Acetaminophen 650 mg Q6HP PRN PO 02/23/24 06:45 Nitroglycerin 0.4 mg Q5MINP PRN SL 02/23/24 06:45 Morphine Sulfate 2 mg Q30M PRN IV 02/23/24 06:45 Amlodipine Besylate 10 mg DAILY PO 02/24/24 10:00 02/27/24 09:31 10 MG Ceftriaxone Sodium 50 ml @ 100 mls/hr DAILY@09 IV 02/24/24 09:00 02/27/24 09:32 100 MLS/HR Metoprolol Tartrate 25 mg BID PO 02/23/24 22:00 02/27/24 09:32 25 MG Allopurinol 100 mg DAILY PO 02/25/24 10:00 02/27/24 09:31 100 MG Calcium Acetate 1,334 mg TIDWMEALS PO 02/24/24 18:00 02/27/24 08:30 1,334 MG Laboratory Results Laboratory Tests 02/26/24 07:47 02/27/24 06:51 Chemistry Test 02/27/24 06:51 Albumin 3.6 g/dL (3.2-4.8) Calcium Level 7.8 mg/dL (8.7-10.4) L Total Protein 6.3 g/dL (5.7-8.2) LFT Test 02/27/24 06:51 Alanine Aminotransferase (ALT) 18 U/L (7-40) Alkaline Phosphatase 100 U/L (46-116) Aspartate Amino Transferase (AST) 16 U/L (13-40) Total Bilirubin 0.3 mg/dL (0.2-1.0) Urinalysis Test 02/23/24 08:00 02/23/24 18:47 Urine Color Colorless (Yellow) Urine Clarity Clear (Clear) Urine pH 6.0 (5.0-9.0) Urine Specific [place] 1.006 (1.001-1.035) Urine Protein 2+ (Negative) H Urine Ketones Negative (Negative) Urine Blood Trace /uL (Negative) H Urine Nitrite Negative (Negative) Urine Bilirubin Negative (Negative) Urine Urobilinogen Normal mg/dL (Negative) Urine Leukocyte Esterase 2+ /uL (Negative) Urine RBC 1 /hpf (0 - 3) Urine WBC 20 /hpf (0 - 3) Urine Squamous Epithelial Cells None seen /hpf (<5) Urine Bacteria Many /hpf (None Seen) H Urine Yeast (Budding) Occasional /hpf (None Urine Glucose Normal mg/dL (Normal) Urine Creatinine 33.60 mg/dL (30.0-125.0) Urine Sodium 50 mmol/L (40-220) Urine Total Protein 178.4 mg/dL (1-14) H Microbiology Microbiology Date/Time Source Procedure Growth Status 02/25/24 06:55 Nose MRSA Screen - Final Complete 02/23/24 18:47 Voided Urine Urine Culture - Final Escherichia coli Complete Labs and/or images reviewed: Labs reviewed by me, Image(s) reviewed by me Assessment/Plan Assessment/Plan patient here for HTN crisis, noted to have tyshawn on ckd, meeting acute indication for HD with poor clearance of azotemia. uti also present. patient vitals are stable but needs ongoing eval for HD and renal stabilization. assessment Hypertensive urgency; acute on chronic renal failure; anemia, AoCD likely from renal failure; gout; acute systolic/diastolic heart failure; acute cystitis; plan stable to transfer to [facility] today 02/26 - continue ceftriaxone for supple UTI - HD cath inserted , status post HD 02/24.- defer further eval to [facility] - HTN - continue metoprolol and amlodipine po. add prazosin 1mg bid; prn hydralazine 10mg q6h (prn sBP>170) stable BP. Plan discussed with: Patient Date of Service: Feb 27, 2024 Billing Provider: KHLOE HILL MD Common Visit Codes: [id number] INP/OBS CARE(HIGH) KHLOE HILL MD Feb 27, 2024 11:16
--- NOTE | 2024-02-27 15:51 | DVHPN2 ---
Progress Note Date Seen: Feb 27, 2024 Medical Necessity Reason Pt with a Central, PICC or Fol: No Subjective Patient reports: No new complaints Objective vital signs Vital Sign Date Time Temp Pulse Resp B/P (MAP) Pulse Ox O2 Delivery O2 Flow Rate FiO2 02/27/24 13:00 98.4 74 19 98 02/27/24 12:58 152/74 (100) 02/27/24 08:00 Room Air* 0 21 Total Intake and Output 02/26/24 02/26/24 02/27/24 15:00 23:00 07:00 Intake Total 50 ml 800 ml 500 ml Output Total 250 ml 700 ml Balance 50 ml 550 ml -200 ml medications Current Medications Medications Dose Ordered Sig/Gildardo Route Start Time Stop Time Status Last Admin Dose Admin Hydralazine HCl 10 mg Q6HP PRN IV 02/23/24 06:45 02/27/24 12:20 10 MG Acetaminophen/ Hydrocodone Bitart 1 tab Q4HP PRN PO 02/23/24 06:45 02/26/24 18:19 1 TAB Ondansetron HCl 4 mg Q4HP PRN IV 02/23/24 06:45 02/27/24 15:43 4 MG Acetaminophen 650 mg Q6HP PRN PO 02/23/24 06:45 Nitroglycerin 0.4 mg Q5MINP PRN SL 02/23/24 06:45 Morphine Sulfate 2 mg Q30M PRN IV 02/23/24 06:45 Amlodipine Besylate 10 mg DAILY PO 02/24/24 10:00 02/27/24 09:31 10 MG Ceftriaxone Sodium 50 ml @ 100 mls/hr DAILY@09 IV 02/24/24 09:00 02/27/24 09:32 100 MLS/HR Metoprolol Tartrate 25 mg BID PO 02/23/24 22:00 02/27/24 09:32 25 MG Allopurinol 100 mg DAILY PO 02/25/24 10:00 02/27/24 09:31 100 MG Calcium Acetate 1,334 mg TIDWMEALS PO 02/24/24 18:00 02/27/24 12:15 1,334 MG Examination Gen: In no acute distress. Appears stated age Pulm: Bilateral air entry, no rales CVS:RRR, normal S1 and S2 Ext: No edema Neuro: A&Ox4 laboratory and microbiology Laboratory Tests 02/27/24 06:51 02/26/24 07:47 Test 02/27/24 06:51 Range/Units Serum Glucose 90 74-106 mg/dL Microbiology Date/Time Source Procedure Growth Status 02/25/24 06:55 Nose MRSA Screen - Final Complete 02/23/24 18:47 Voided Urine Urine Culture - Final Escherichia coli Complete Labs and/or images reviewed: Labs reviewed by me Problem List/Assessment/Plan Problem List/Assessment/Plan IMP Acute kidney injury versus ESRD- Last HD on 02/25 Underlying Chronic kidney disease unknown exact baseline Hypertensive emergency-improving blood pressures Anemia-ongoing 2+ proteinuria UTI Atrophic kidneys b/l on US REC Awaiting tx to [place] Renal replacement therapy for solute clearance. Next HD tentatively 02/27 Awaiting chair time with DCD Strict I&O We will continue to follow Case discussed with Dr. Luiz Powell Plan discussed with: Patient DAVE JEFFERSON SLEEP[employer] RO[employer] CLEANER Feb 27, 2024 15:51
[2024-02-27] MEDS ORDERED: hydrALAZINE HCL 20 MG/ML VL IV PRN (17:45)
[2024-02-27] MEDS: NIFEdipine ER 30 MG TAB PO ONE (18:11)
[2024-02-27] MEDS ORDERED: PRAZOSIN HCL 1 MG CAP PO SCH (22:00)
--- NOTE | 2024-02-28 09:32 | DVH ---
XY Insertion of Venous Cath, HISTORY: HD CATH PROCEDURE: Informed consent was obtained. The patient was placed supine on the interventional table. 1 gram of Ancef was given. A limited localization ultrasound of the right neck base was obtained. The right neck base and upper chest were prepped with chlorhexidine which was allowed to dry and draped in the usual sterile fashion. Time out was performed. IV sedation was administered. The skin and the soft tissues were infiltrated with 1% Lidocaine. With real-time ultrasound guidance, the internal jug ular vein was accessed with a micropuncture kit, and an image documenting patency was recorded to PAC S. A subcutaneous tunneled tract was created from the right upper chest to the venotomy site. A 14.5 Serbian Hamer Path, 19 cm long hemodialysis catheter was advanced through the tunneled tract. Fluoroscopy was used to advance a guidewire through the internal jugular vein into the inferior vena cava. Following serial dilatation, a 15 Serbian peel-away sheath was introduced, though which was adva nced the catheter into the right atrium. The catheter tip position was confirmed with fluoroscopy. Th ere was satisfactory flow in both lumens. The catheter lumens were flushed with saline and heparin wa s left indwelling in the catheter. A post-procedure image of the chest was obtained. The neck incisio n site was closed with a Dermabond and dressed sterilely. The catheter was sutured at the skin surfac e and exit site also dressed sterilely. No immediate complication was identified. DAP 49.09 FLUOROSCOPY TIME: 0.9 minutes. SEDATION: Dr. Helen Henry was personally responsible for the administration of moderate sedation during the procedure performed, including the use of an independent trained observer who had no other duties during the procedure. The drugs utilized were IV fentanyl and versed (see nursing log for details). The total time of supervision by the attending physician was approximately 30 minutes. FINDINGS: Widely patent right IJV. Post procedure image demonstrates smooth course of the hemodialysi s catheter with the tip in the right atrium. IMPRESSION: Successful placement of 14.5 Serbian Hamer Path, 19 cm long hemodialysis catheter through right data analysis intern al jugular vein. Plan: Please contact IR for removal when no longer needed.
[2024-02-28] MEDS ORDERED: NIFEdipine ER 30 MG TAB PO SCH (10:00)
--- NOTE | 2024-02-28 10:24 | ECG ---
[facility] Test Date: 2024-02-23 Test Time: 17:59:48 Pat Name: LENY DANIELS Department: er holding Room: 0289T Gender: M [employer] Operator: alan : 1970 Requested By: KATHY LEÓN Order Number: [id number] Reading MD: Measurements Intervals [place] Rate: 83 P: 67 MN: 51 QRS: 81 QRSD: 100 T: 52 QT: 451 QTc: 530 Interpretive Statements Sinus rhythm Short MN interval Prolonged QT interval Baseline wander in lead(s) V5 Please click the below link to view image of tracing.
[2024-02-28 13:06] LABS: Antiglomerular BM Antibody <0.2 units (0.0-0.9)
== END 2024-02-27 19:15 | disposition short-term general hospital (02) | DRG 291 ==
LOC: ER 15:55 → TELE 02-23 06:41 → TELE-WESTW 02-23 22:05
PROVIDERS: ADMIT Student in an Organized Health Care Education/Training Program; ATTEND Student in an Organized Health Care Education/Training Program
PROC: 5A1D70Z Performance of Urinary Filtration, Intermittent, Less than 6 Hours Per Day (ICD-10-PCS; principal; 2024-02-25)
PROC: 0JH63XZ Insertion of Tunneled Vascular Access Device into Chest Subcutaneous Tissue and Fascia, Percutaneous Approach (ICD-10-PCS; 2024-02-25)
PROC: 02HV33Z Insertion of Infusion Device into Superior Vena Cava, Percutaneous Approach (ICD-10-PCS; 2024-02-25)
PROC: B5181ZA Fluoroscopy of Superior Vena Cava using Low Osmolar Contrast, Guidance (ICD-10-PCS; 2024-02-25)
PROC: B548ZZA Ultrasonography of Superior Vena Cava, Guidance (ICD-10-PCS; 2024-02-25)
DX: I13.2 Hypertensive heart and chronic kidney disease with heart failure and with stage 5 chronic kidney disease, or end stage renal disease (principal); I50.41 Acute combined systolic (congestive) and diastolic (congestive) heart failure; N17.0 Acute kidney failure with tubular necrosis; N18.6 End stage renal disease; I16.1 Hypertensive emergency; N30.00 Acute cystitis without hematuria; D64.9 Anemia, unspecified; M10.9 Gout, unspecified; N26.1 Atrophy of kidney (terminal); Z82.49 Family history of ischemic heart disease and other diseases of the circulatory system; Z80.0 Family history of malignant neoplasm of digestive organs; Z80.6 Family history of leukemia; Z87.891 Personal history of nicotine dependence; Z95.810 Presence of automatic (implantable) cardiac defibrillator
CPT/HCPCS: 36415; 36558; 36600; 71045; 76775; 77001; 80048; 80053; 80074; 81001; 82270; 82306; 82570; 82805; 83010; 83516; 83540; 83550; 83735; 83880; 84100; 84156; 84300; 84484; 84550; 85025; 85045; 85610; 85730; 86160; 86225; 86235; 86850; 86880; 86900; 86901; 87081; 87086; 87088; 87186; 90935; 93306; 96361; 96365; 96375; 99152; 99291; C1894; G0378; J2250; J2405